=== PATIENT | male | born 1945 | race Caucasian/White ===

== ENCOUNTER 2017-05-04 17:10 | Emergency (ER) | payer MEDICARE ==
[2017-05-04 17:53] LABS: ADD MAN DIFF? NO
[2017-05-04 17:54] LABS: BASO # 0.1 x10^3/uL (0.0-0.2); BASO % 1 % (0-3); EOS # 0.2 x10^3/uL (0.0-0.7); EOS % 4 % (0-3); HEMATOCRIT 41.9 % (39.0-53.0); HEMOGLOBIN 14.4 g/dL (13.0-17.5); LYMPH # 1.6 x10^3/uL (1.0-4.8); LYMPH % 25 % (24-48); MEAN CORPUSCULAR HEMOGLOBIN 32 pg (25-35); MEAN CORPUSCULAR HGB CONC 34 g/dL (31-37); MEAN CORPUSCULAR VOLUME 93 fL (79-100); MONO # 0.7 x10^3/uL (0.0-1.1); MONO % 11 % (0-9); NEUT # 3.9 x10^3uL (1.8-7.7); NEUT % 59 % (31-73); PLATELET COUNT 166 x10^3/uL (140-400); WHITE BLOOD COUNT 6.5 x10^3/uL (4.0-11.0)
[2017-05-04 18:05] LABS: BLOOD UREA NITROGEN 14 mg/dL (8-26); CALCIUM 8.8 mg/dL (8.5-10.1); CREATININE 1.2 mg/dL (0.7-1.3); GLUCOSE 115 mg/dL (70-99)
[2017-05-04 18:06] LABS: ANION GAP 8 (6-14); BUN/CREATININE RATIO 12 (6-20); CARBON DIOXIDE 28 mmol/L (21-32); CHLORIDE 101 mmol/L (98-107); GFR 59.7; SODIUM 137 mmol/L (136-145)
[2017-05-04 18:11] LABS: ALBUMIN 3.7 g/dL (3.4-5.0); ALBUMIN/GLOBULIN RATIO 1.1 (1.0-1.7); ALK PHOS 77 U/L (46-116); ALT (SGPT) 33 U/L (16-63); AST (SGOT) 19 U/L (15-37); TOTAL BILIRUBIN 0.4 mg/dL (0.2-1.0); TOTAL PROTEIN 7.1 g/dL (6.4-8.2)
[2017-05-04 18:14] LABS: TROPONINI < 0.017 ng/mL (0.000-0.055)
[2017-05-04] MEDS: LABETALOL 20 MG/4 ML DISP.SYRIN. IVP (18:21)
[2017-05-04 18:54] LABS: INR 2.7 (0.8-1.1)
== END 2017-05-04 19:39 | disposition home or self-care (01) ==
LOC: ER 17:10
DX: R07.89 Other chest pain (principal); I16.0 Hypertensive urgency; E78.00 Pure hypercholesterolemia, unspecified; I10 Essential (primary) hypertension; I25.10 Atherosclerotic heart disease of native coronary artery without angina pectoris; Z79.01 Long term (current) use of anticoagulants
CPT/HCPCS: 36415; 71045; 80053; 84484; 85025; 85610; 93005; 96374; 99285-25; J3490

== ENCOUNTER 2020-06-03 07:34 | Emergency (ER) | payer MEDICARE ==
[~2020-06-03] VITALS: Ht 188 cm; Wt 114.0 kg
[2020-06-03] MEDS: fentaNYL PF VIAL 100 MCG/2 ML VIAL IVP ONE (08:29)
--- NOTE | 2020-06-03 08:39 | ED.ADGEN ---
Past Medical History Past Medical History: Cancer, DVT, High Cholesterol, Hypertension, Stroke, Other Additional Past Medical Histor: PROSTATE CA Past Surgical History: Other Additional Past Surgical Histo: STENT PLACEMENT Smoking Status: Never Smoker Alcohol Use: Occasionally Drug Use: None General Adult EDM: Chief Complaint: FLANK PAIN HPI: HPI: Patient is a 75 year old male coming in for right flank pain since yesterday. Patient states he had some pain that he noticed it was not changed with movement. States this morning when he woke up the pain was more severe, 8 out of 10. States he took 2 full-strength aspirins without improvement. Patient denies any trauma, heavy lifting. Patient is anticoagulated for atrial fibrillation and previous DVTs. Patient is a history of prostate cancer and last had radiation about 7 to 8 months ago. Denies any hematuria, dysuria, history urinary tract infections or kidney stones. Patient states he otherwise has been well. Review of Systems: Review of Systems: All other systems within normal limits except for as noted in the HPI Current Medications: Current Medications Medications (Trade) Dose Ordered Sig/Joana Start Time Stop Time Status Last Admin Dose Admin Fentanyl Citrate (Fentanyl 2ml Vial) 75 mcg 1X ONCE 06/03/20 09:15 06/03/20 09:16 DC 06/03/20 08:29 75 MCG Info (CONTRAST GIVEN -- Rx MONITORING) 1 each PRN DAILY PRN 06/03/20 10:30 06/05/20 10:29 Iohexol (Omnipaque 300 Mg/ml) 60 ml 1X ONCE 06/03/20 10:30 06/03/20 10:31 DC 06/03/20 10:29 60 ML Allergies: Allergies: Allergies Coded Allergies Type Severity Reaction Last Updated Verified No Known Drug Allergies 05/04/17 No Physical Exam: PE: Constitutional: Well developed, well nourished, no acute distress, non-toxic luke earance. [] HENT: Normocephalic, atraumatic, bilateral external ears normal, nose normal. [] Eyes: PERRLA, conjunctiva normal, no discharge. [] Neck: No rigidity, supple, no stridor. [] Cardiovascular: Regular rate and rhythm, brisk cap refill [] Lungs & Thorax: Non labored symmetric respirations, no tachypnea or respiratory distress [] Abdomen: Soft, nondistended, nontender. Skin: Warm, dry, no erythema, no rash. [] Ecchymosis over right hip and right lower quadrant. Back: Unremarkable, no CVA tenderness, no point spinal tenderness, no step-offs or deformities. Extremities: No deformities, range of motion grossly intact, symmetric 1+ bilateral lower extremity edema [] Neurologic: Alert and oriented X 3, no focal deficits noted. [] Psychologic: Affect normal, judgement normal, mood normal. [] Current Patient Data: Labs: Laboratory Tests Test 06/03/20 08:20 06/03/20 08:25 Urine Collection Type Void Urine Color Yellow Urine Clarity Clear Urine pH 7.0 (<5.0-8.0) Urine Specific [place] 1.010 (1.000-1.030) Urine Protein Negative mg/dL (NEG-TRACE) Urine Glucose (UA) Negative mg/dL (NEG) Urine Ketones (Stick) Negative mg/dL (NEG) Urine Blood Negative (NEG) Urine Nitrite Negative (NEG) Urine Bilirubin Negative (NEG) Urine Urobilinogen Dipstick 0.2 mg/dL (0.2 mg/dL) Urine Leukocyte Esterase Negative (NEG) Urine RBC 0 /HPF (0-2) Urine WBC 0 /HPF (0-4) Urine Squamous Epithelial Cells Occ /LPF Urine Bacteria 0 /HPF (0-FEW) White Blood Count 4.2 x10^3/uL (4.0-11.0) Red Blood Count 3.95 x10^6/uL (4.30-5.70) L Hemoglobin 12.9 g/dL (13.0-17.5) L Hematocrit 38.2 % (39.0-53.0) L Mean Corpuscular Volume 97 fL (79-100) Mean Corpuscular Hemoglobin 33 pg (25-35) Mean Corpuscular Hemoglobin Concent 34 g/dL (31-37) Red Cell Distribution Width 13.8 % (11.5-14.5) Platelet Count 171 x10^3/uL (140-400) Neutrophils (%) (Auto) 75 % (31-73) H Lymphocytes (%) (Auto) 14 % (24-48) L Monocytes (%) (Auto) 10 % (0-9) H Eosinophils (%) (Auto) 1 % (0-3) Basophils (%) (Auto) 1 % (0-3) Neutrophils # (Auto) 3.2 x10^3/uL (1.8-7.7) Lymphocytes # (Auto) 0.6 x10^3/uL (1.0-4.8) L Monocytes # (Auto) 0.4 x10^3/uL (0.0-1.1) Eosinophils # (Auto) 0.0 x10^3/uL (0.0-0.7) Basophils # (Auto) 0.0 x10^3/uL (0.0-0.2) Prothrombin Time 23.1 SEC (11.7-14.0) H Prothrombin Time INR 2.1 (0.8-1.1) H D-Dimer (Dayana) 0.42 ug/mlFEU (0.00-0.50) Sodium Level 142 mmol/L (136-145) Potassium Level 4.7 mmol/L (3.5-5.1) Chloride Level 106 mmol/L (98-107) Carbon Dioxide Level 29 mmol/L (21-32) Anion Gap 7 (6-14) Blood Urea Nitrogen 22 mg/dL (8-26) Creatinine 1.3 mg/dL (0.7-1.3) Estimated GFR (Cockcroft-Gault) 54.0 BUN/Creatinine Ratio 17 (6-20) Glucose Level 96 mg/dL (70-99) Calcium Level 8.1 mg/dL (8.5-10.1) L Magnesium Level 2.1 mg/dL (1.8-2.4) Total Bilirubin 0.4 mg/dL (0.2-1.0) Aspartate Amino Transferase (AST) 21 U/L (15-37) Alanine Aminotransferase (ALT) 27 U/L (16-63) Alkaline Phosphatase 73 U/L (46-116) Troponin I Quantitative < 0.017 ng/mL (0.000-0.055) ME-Eof-P-Type Natriuretic Peptide 694 pg/mL (0-124) H Total Protein 6.2 g/dL (6.4-8.2) L Albumin 3.5 g/dL (3.4-5.0) Albumin/Globulin Ratio 1.3 (1.0-1.7) Lipase 156 U/L (73-393) Laboratory Tests 06/03/20 08:25 Laboratory Tests 06/03/20 08:25 Vital Signs: Vital Signs Date Time Temp Pulse Resp B/P (MAP) Pulse Ox O2 Delivery O2 Flow Rate FiO2 06/03/20 07:34 97.9 56 20 159/72 (101) 97 Room Air 97.9 EKG: EKG: [] Heart Score: C/O Chest Pain: No Risk Factors: Risk Factors: DM, Current or recent (<one month) smoker, HTN, HLP, family hist ory of CAD, obesity. Risk Scores: Score 0 - 3: 2.5% MACE over next 6 weeks - Discharge Home Score 4 - 6: 20.3% MACE over next 6 weeks - Admit for Clinical Observation Score 7 - 10: 72.7% MACE over next 6 weeks - Early Invasive Strategies Radiology/Procedures: Radiology/Procedures: CT ABDOMEN+PELVIS W Indication: Reason: right flank pain and spontaneous bruising / Spl. Instructions: omni 300 60ml / History: TECHNIQUE: CT examination of the abdomen and pelvis was performed following the administration of oral and nonionic intravenous contrast. One or more of the following dose reduction techniques were utilized: *Automated exposure control (AEC) *Adjustment of mA and/or kV according to patient size *Use of iterative reconstruction technique *CT scan done according to ALARA, or ALARA/IMAGE GENTLY FINDINGS: The visualized lung bases are clear. Heart is enlarged with coronary artery calcifications. There are multiple right renal cysts. No urinary tract calculi are seen. No hydronephrosis. The liver, gallbladder, spleen, pancreas, adrenal glands and kidneys are otherwise normal. Urinary bladder is normal in appearance. Diverticulosis coli is seen without bowel obstruction or inflammation. The appendix is normal. Moderate to severe atherosclerotic calcifications are seen. No lymphadenopathy or ascites is seen. Degenerative changes are seen in the spine. IMPRESSION: No evidence of acute intra-abdominal pathology. Right renal cysts noted. No urinary tract calculi. No hydronephrosis. [] Impression: Discussed incidental findings of right renal cyst. Patient was unaware he had a cyst on his right kidney. Also discussed possibility of soft tissue injury exacerbated by anticoagulation or musculoskeletal problem. Advised patient to follow-up with his primary care provider for further evaluation of right kidney cyst. Course & Med Decision Making: Course & Med Decision Making Pertinent Labs and Imaging studies reviewed. (See chart for details) [] Dragon Disclaimer: Dragon Disclaimer: This electronic medical record was generated, in whole or in part, using a voice recognition dictation system. Departure Departure Impression: Primary Impression: Right flank pain Additional Impression: Renal cyst, right Disposition: 01 DC HOME SELF CARE/HOMELESS Condition: STABLE Referrals: SHANTEL BARKSDALE MD (PCP) Patient Instructions: Flank Pain Scripts Hydrocodone Bit/Acetaminophen (HYDROCODONE-APAP 7.5-300) 1 Each Tablet 1 TAB PO PRN Q6HRS PRN for PAIN MDD 4 Tablet(s) for 3 Days, #12 TAB 0 Refills Prov: DEWAYNE ARREOLA MD 06/03/20 Problem Qualifiers DEWAYNE ARREOLA MD Jun 03, 2020 08:39
[2020-06-03 08:58] LABS: BASO % 1 % (0-3); EOS % 1 % (0-3); HEMATOCRIT 38.2 % (39.0-53.0); HEMOGLOBIN 12.9 g/dL (13.0-17.5); LYMPH # 0.6 x10^3/uL (1.0-4.8); LYMPH % 14 % (24-48); MEAN CORPUSCULAR HEMOGLOBIN 33 pg (25-35); MEAN CORPUSCULAR HGB CONC 34 g/dL (31-37); MEAN CORPUSCULAR VOLUME 97 fL (79-100); MONO # 0.4 x10^3/uL (0.0-1.1); MONO % 10 % (0-9); NEUT # 3.2 x10^3/uL (1.8-7.7); NEUT % 75 % (31-73); PLATELET COUNT 171 x10^3/uL (140-400); RED BLOOD COUNT 3.95 x10^6/uL (4.30-5.70); RED CELL DISTRIBUTION WIDTH 13.8 % (11.5-14.5); WHITE BLOOD COUNT 4.2 x10^3/uL (4.0-11.0)
[2020-06-03 08:59] LABS: BILIRUBIN,URINE NEGATIVE (NEG); CLARITY,URINE CLEAR; COLOR,URINE YELLOW; NITRITE,URINE NEGATIVE (NEG); PROTEIN,URINE NEGATIVE (NEG-TRACE); UROBILINOGEN,URINE 0.2 mg/dL (0.2 mg/dL)
[2020-06-03 09:08] LABS: PROTHROMBIN TIME PATIENT 23.1 SEC (11.7-14.0)
[2020-06-03 09:11] LABS: D-DIMER 0.42 ug/mlFEU (0.00-0.50)
[2020-06-03 09:14] LABS: BACTERIA,URINE 0 /HPF (0-FEW); RBC,URINE 0 /HPF (0-2); WBC,URINE 0 /HPF (0-4)
[2020-06-03 09:20] LABS: CALCIUM 8.1 mg/dL (8.5-10.1); CREATININE 1.3 mg/dL (0.7-1.3); POTASSIUM 4.7 mmol/L (3.5-5.1)
[2020-06-03 09:25] LABS: ALBUMIN 3.5 g/dL (3.4-5.0); ALBUMIN/GLOBULIN RATIO 1.3 (1.0-1.7); MAGNESIUM 2.1 mg/dL (1.8-2.4); TOTAL BILIRUBIN 0.4 mg/dL (0.2-1.0); TOTAL PROTEIN 6.2 g/dL (6.4-8.2)
[2020-06-03] MEDS: IOHEXOL 300 MG/ML 100ML VIAL. IV ONE (10:29)
[2020-06-03] MEDS ORDERED: CONTRAST GIVEN. MC PRN (10:30)
--- NOTE | 2020-06-03 11:06 | RAD ---
Exam Date: 06/03/2020 10:[address] ABDOMEN+PELVIS W Indication: Reason: right flank pain and spontaneous bruising / Spl. Instructions: omni 300 60ml / Hi story: TECHNIQUE: CT examination of the abdomen and pelvis was performed following the administration of or al and nonionic intravenous contrast. One or more of the following dose reduction techniques were ut ilized: *Automated exposure control (AEC) *Adjustment of mA and/or kV according to patient size *Use of iterative reconstruction technique *CT scan done according to ALARA, or ALARA/IMAGE GENTLY FINDINGS: The visualized lung bases are clear. Heart is enlarged with coronary artery calcifications. There are multiple right renal cysts. No urinary tract calculi are seen. No hydronephrosis. The liver, gallbladder, spleen, pancreas, adrenal glands and kidneys are otherwise normal. Urinary bladder is normal in appearance. Diverticulosis coli is seen without bowel obstruction or inflammation. The appendix is normal. Moderate to severe atherosclerotic calcifications are seen. No lymphadenopathy or ascites is seen. Degenerative changes are seen in the spine. IMPRESSION: No evidence of acute intra-abdominal pathology. Right renal cysts noted. No urinary tract calculi. No hydronephrosis. Electronically signed by: Willie Calhoun MD (06/03/2020 11:04 AM) [id number]
[2020-06-03 11:31] VITALS: BP 162/74
[2020-06-03] MEDS ORDERED: HYDR-3070 PO (11:46)
[2020-06-03] MEDS: HYDROcodone/APAP 5/325MG 1 TAB TABLET PO ONE (12:11)
== END 2020-06-03 12:12 | disposition home or self-care (01) ==
LOC: ER 07:34
DX: N28.1 Cyst of kidney, acquired (principal); R10.31 Right lower quadrant pain; R60.0 Localized edema; E78.00 Pure hypercholesterolemia, unspecified; I10 Essential (primary) hypertension; I25.2 Old myocardial infarction; Z98.890 Other specified postprocedural states; Z86.718 Personal history of other venous thrombosis and embolism; Z85.9 Personal history of malignant neoplasm, unspecified
CPT/HCPCS: 36415; 74177; 80053; 81001; 83690; 83735; 83880; 84484; 85025; 85379; 85610; 96374; 99284; J3010; Q9967

== ENCOUNTER → 2021-05-08 | Outpatient (CLI) | payer MEDICARE ==
[~2021-05-08] MED LIST: HYDR-3070 PO
--- NOTE | 2021-05-08 10:36 | KCIC ---
STUDY: MRI of the right knee without contrast INDICATION: Right knee pain. Osteoarthrosis. COMPARISON: Radiographs from 04/05/2021 TECHNIQUE: Multiplanar MR imaging of the right knee performed without the use of intravenous or intra -articular contrast. FINDINGS: Menisci: Complex undersurface tear of the medial meniscus extending from the mid body segment through the posterior horn with a small amount of meniscal tissue extending downward into the meniscotibial recess. There is also a small free edge radial tear of the medial meniscus posterior horn approaching the root junction, image 10 series 8. Tear at the lateral meniscus posterior root insertion. Cruciate ligaments: Intact. Collateral ligaments: No acute ligamentous disruption. Tendons: No tendon tear or advanced tendinosis. Cartilage: Patellofemoral: Patellar chondrosis involving the lateral more so than medial facets and high-grade/n ear full-thickness at the upper aspect of the lateral facet. Partial-thickness trochlear chondrosis. Lateral compartment: High-grade/full-thickness chondrosis at the posterior aspect of the lateral tibi al plateau and at the posterior weightbearing to posterior nonweightbearing lateral femoral condyle. Medial compartment: Scattered chondrosis highest grade at the posterior margin of the medial tibial p lateau. Bones: Degenerative subchondral signal at the periphery of the medial tibial plateau subjacent to the meniscus tear. Small osteophytes at all three compartments. No acute or aggressive marrow signal abn ormality. Miscellaneous: Small/moderate knee joint effusion with synovitis. Multifocal subcutaneous edema. Musc ular fatty infiltration such as involving the semimembranosus. IMPRESSION: 1. Complex undersurface tear of the medial meniscus from the mid body segment through the posterior horn with a small amount of meniscal tissue extending downward into the meniscotibial recess. Torn la teral meniscus at the posterior root insertion. Intact cruciate and collateral ligaments. 2. 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 3. Small/moderate knee joint effusion with synovitis. Scattered reactive edema around the knee and m uscular fatty infiltration. Electronically signed by: EULALIO LECHUGA MD (05/08/2021 10:33 AM) [id number]
--- NOTE | 2021-05-08 13:09 | KCIC ---
Study: MRI of the right hip without contrast INDICATION: Right hip pain. Iliac crest spur. Osteoarthrosis. COMPARISON: CT abdomen/pelvis 06/03/2020 TECHNIQUE: Multiplanar MR imaging of the right hip performed without the use of intravenous or intra- articular contrast. FINDINGS: Bones/hip: No acute or aggressive marrow signal abnormality. Mild arthrosis at the hips. Incompletely characterized lower lumbar facet arthrosis. Mild degenerative changes at the pubic symphysis and sac roiliac joints. Scattered enthesophyte formation. Labrum/cartilage: Labral degeneration/degenerative tearing with blunting and heterogeneous signal wel l seen from anterior/superior to posterior/superior. Chondral thinning without a large full-thickness defect. Ligamentum teres: Remains intact. Greater trochanteric bursa: Unremarkable. Musculotendinous: No high-grade/full-thickness tendon tear. No soft tissue edema in the region of the right iliac crest with spurring/dystrophic mineralization at this location on the comparison CT. Chr onic intermediate grade partial tear at the left common hamstring origin. Tendinosis of the right com mon hamstring origin. Within normal limits ischiofemoral space. Mild scattered muscular fatty infiltr ation. Miscellaneous: No abnormality along the right sciatic nerve bundle. No significant hip joint effusion . No periarticular soft tissue edema. IMPRESSION: 1. No acute osseous or soft tissue abnormality associated with the right hip or in the region of the right iliac crest. 2. Mild right hip arthrosis for patient age with multifocal labral degeneration/degenerative tearing and partial thickness chondrosis. 3. Chronic intermediate grade partial tear at the left common hamstring origin. Electronically signed by: EULALIO LECHUGA MD (05/08/2021 1:07 PM) [id number]
== END ==
LOC: KCIC MRI 09:01
PROVIDERS: ATTEND Physician Assistant
DX: S73.191A Other sprain of right hip, initial encounter (principal); S83.231A Complex tear of medial meniscus, current injury, right knee, initial encounter; R60.0 Localized edema; M16.11 Unilateral primary osteoarthritis, right hip; M25.461 Effusion, right knee; M25.761 Osteophyte, right knee; M22.41 Chondromalacia patellae, right knee; M65.861 Other synovitis and tenosynovitis, right lower leg; M62.89 Other specified disorders of muscle; M76.891 Other specified enthesopathies of right lower limb, excluding foot; X58.XXXA Exposure to other specified factors, initial encounter; Y93.89 Activity, other specified; Y92.89 Other specified places as the place of occurrence of the external cause; Y99.8 Other external cause status
CPT/HCPCS: 73721

== ENCOUNTER → 2021-05-18 | Outpatient (CLI) | payer MEDICARE ==
[~2021-05-18] MED LIST changes: +REGADENOSON 0.4 MG/5 ML DISP.SYRIN. IV ONE
--- NOTE | 2021-05-18 17:16 | CARD ---
MR#: [id number] Date of Study: 05/18/2021 Ordering Physician: JOEL JACKSON, Referring Physician: Barbara FRANKS: Bam Jain [facility] APPROVED REPORT EXAM: Two-dimensional and M-mode echocardiogram with Doppler and color Doppler. Other Information Quality : AverageHR: 58bpm Rhythm : NSR INDICATION Atrial Fibrillation Cardiac Disease: CAD RISK FACTORS Hypertension Obesity Hyperlipidemia 2D DIMENSIONS Left Atrium(2D)5.1 (1.6-4.0cm)IVSd1.4 (0.7-1.1cm) Aortic Root(2D)3.6 (2.0-3.7cm)LVDd5.4 (3.9-5.9cm) PWd1.4 (0.7-1.1cm)LA [id number] (18-58mL) LVDs2.6 (2.5-4.0cm)FS (%) 50.9 % SV113.2 ml Aortic Valve AoV Peak Moreno.180.2cm/sAoV VTI41.9cm AO Peak GR.13.0mmHgLVOT Peak Moreno.121.2cm/s AO Mean GR.7mmHg Mitral Valve MV E Lycnoxej20.2cm/sMV E Peak Gr.4mmHg MV DECEL [id number] A Qkzjvsok791.2cm/s MV E Mean Gr.2mmHgE/A Ratio0.9 Pulmonary Valve PV Peak Qdefkvaf876.0cm/s Tricuspid Valve TR P. Xjtqzloa761vb/sTR Peak Gr.34mmHg Pulmonary Vein S1 Stegbdiv13.4cm/sD2 Ghwqibau33.8cm/s LEFT VENTRICLE The left ventricle is normal size. There is mild concentric left ventricular hypertrophy. The left ve ntricular systolic function is normal and the ejection fraction is within normal range. LV ejection f raction of 55-60%. There is normal LV segmental wall motion. No left ventricle thrombus noted on this study. There is no ventricular septal defect visualized. There is no left ventricular aneurysm. Ther e is no mass noted in the left ventricle. RIGHT VENTRICLE The right ventricle is normal size. There is normal right ventricular wall thickness. The right ventr icular systolic function is normal. ATRIA The left atrium is mildly dilated. The right atrium size is normal. The interatrial septum is intact with no evidence for an atrial septal defect or patent foramen ovale as noted on 2-D or Doppler imagi ng. AORTIC VALVE The aortic valve is mildly sclerotic. The aortic valve is tri-cuspid. Doppler and Color Flow revealed no significant aortic regurgitation. There is no significant aortic valvular stenosis. There is no a ortic valvular vegetation. MITRAL VALVE The mitral valve is normal in structure and function. There is no evidence of mitral valve prolapse. There is no mitral valve stenosis. Doppler and Color-flow revealed trace mitral regurgitation. TRICUSPID VALVE The tricuspid valve is normal in structure and function. Doppler and Color Flow revealed trace tricus pid regurgitation. There is no tricuspid valve prolapse or vegetation. There is no tricuspid valve st enosis. PULMONIC VALVE The pulmonary valve is normal in structure and function. Doppler and Color Flow revealed no pulmonic valvular regurgitation. There is no pulmonic valvular stenosis. GREAT VESSELS The aortic root is normal in size. The ascending aorta is normal in size. The pulmonary artery is nor mal. The IVC is not well visualized. Difficult subcostal views. PERICARDIAL EFFUSION There is no pleural effusion. There is no evidence of significant pericardial effusion. Critical Notification Critical Value: No <Conclusion> The left ventricle is normal size. The left ventricular systolic function is normal and the ejection fraction is within normal range. LV ejection fraction of 55-60%. There is mild concentric left ventricular hypertrophy. Doppler and Color Flow revealed no significant aortic regurgitation. There is no significant aortic valvular stenosis. Doppler and Color-flow revealed trace mitral regurgitation. Doppler and Color Flow revealed trace tricuspid regurgitation. Signed by : Valentino Morales MD Electronically Approved : 05/18/2021 17:15:34
--- NOTE | 2021-05-18 17:40 | RAD ---
MR#: [id number] Date of Study: 05/18/2021 Ordering Physician: JOEL JACKSON, Referring Physician: TRACEY FRANKS Tech: RT Nicolette (R) (N) APPROVED REPORT Test Type: Pharmacological Stress Nurse/Tech: Markel DONATO Test Indications: PAF Cardiac History: MS w/ stents, HTN, anticoagulants, CVA, Chemotherapy Medications: See EMR Medical History: See EMR Resting ECG: Sinus Micha w/ 1st degree AVB Resting Heart Rate: 48 bpm Resting Blood Pressure: 173/69mmHg Pretest Chest Pain: No chest pain Nurse/Tech Notes Lungs CTA, No SOA. Murmur noted. No chest pain. Pharm. Details Pharmacologic stress testing was performed using 0.4mg per 5ml of regadenoson given intravenously ove r 7-10 seconds. Stress Symptoms Flushing, headache. No chest pain, no SOA. Symptoms resolved by recovery period. POST EXERCISE Reason for Termination: Infusion complete Max HR: 57 bpm Max Blood Pressure: 173/69mmHg Blood Pressure response to exercise: Normal blood pressure response during stress. Heart Rate response to exercise: NORMAL RESPONSE Chest Pain: No. Arrhythmia: No. ST Change: No. INTERPRETATION Stress EKG Conclusion: The resting EKG shows a sinus bradycardia with a prolonged TN interval and non specific ST segment changes. The stress EKG shows no significant changes from baseline. No EKG evidence of stress-induced ischemia. Imaging Protocol IMAGE PROTOCOL: Rest Tc-99m/stress Tc-99m 1 day Rest: Stress: Viability: Radiopharm.Tc99m [id number] Sestamibi Dose9.5mCi 31.4mCi Duration 13.5min. 13.5min. Img Date 05/18/2021 05/18/2021 Inj-Img [id number]. 60min. Rest Admin Site:IV - Left AntecubitalAdministrator:RT Nicolette (R)(N) Stress Admin Site: IV - Left AntecubitalAdministrator: RT Carlos A (R)(N) STRESS DATA End Diast. Vol.128.0mlLVEDV index BSA52.0ml End Syst. Vol.40.0mlLVESV index BSA16.0ml Myocardial Hvor462.0gEject. Zpjbdesc83.0% Stress Scores Regional WT0.00Summed WT1.00 Regional WM0.00Summed WM2.00 LV Perfusion The stress scans showed no significant defects. The rest scans showed no significant defects. Nuclear imaging shows no reversible ischemia or infarct. Wall Motion LV systolic function is intact with an ejection fraction of 69%. LV Perf. Quant 17 Seg. SSS4.00 17 Seg. SRS11.00 17 Seg. SDS0.00 Stress Defect Extent (% LAD)0.00Rest Defect Extent (% LAD)20.00Rev. Defect Extent (% LAD)0.00 Stress Defect Extent (% LCX) 25.00Rest Defect Extent (% LCX)46.30Rev. Defect Extent (% LCX)0.00 Stress Defect Extent (% RCA)0.00Rest Defect Extent (% RCA)0.00Rev. Defect Extent (% RCA)0.00 Stress Defect Extent (% ANTON)7.00Rest Defect Extent (% ANTON)20.40Rev. Defect Extent (% ANTON)0.00 Conclusion 1. No EKG evidence of stress-induced ischemia. 2. Nuclear imaging shows no reversible ischemia or infarct. 3. Intact LV systolic function with an ejection fraction of 69%. 4. Moderately low risk Lexiscan nuclear stress test. Signed by : Valentino Morales MD Electronically Approved : 05/18/2021 17:40:16
== END ==
LOC: NM 07:38
PROVIDERS: ATTEND Internal Medicine Cardiovascular Disease
DX: I35.1 Nonrheumatic aortic (valve) insufficiency (principal); I51.7 Cardiomegaly; I48.0 Paroxysmal atrial fibrillation
CPT/HCPCS: 78452; 93017; 93306; A9500; J2785; C8929